=== PATIENT | female | born 1985 | race Caucasian/White ===

== ENCOUNTER 2017-05-20 22:47 | Emergency (ER) | payer SELFPAY ==
[~2017-05-20] VITALS: Ht 167.6 cm; Wt 104.3 kg
[2017-05-20 23:14] VITALS: BP 164/100
--- NOTE | 2017-05-20 23:40 | PHYS DOC ---
Past Medical History Past Medical History: Asthma, Diabetes-Type II, High Cholesterol, Hypertension Past Surgical History: Alcohol Use: Occasionally Drug Use: None Adult General Chief Complaint Chief Complaint: LOWER EXTREMITY SWELLING [facility] HPI Patient is a 31 year old [female presents to the emergency department stating that she is having left lower pain in her calf area just above the ankle for the last 3 or 4 days. She states that the area is red warm and very tender to touch. The area does appear to be circumferential. She does have swelling noted tendon to her ankle area. Patient is also complaining of pain and discomfort to her left eye. She states that she was seen at approximately a week ago and was told that she had a plugged that had flown into her eye. They deny any type of corneal abrasion. The eye still appears to be red. She states she was provided with medication [id number] for the eye irritation. Patient consented clear when her last tetanus immunization occurred. Review of Systems Review of Systems Constitutional: Denies fever or chills [] Eyes: Denies change in visual acuity, redness, or eye pain. Complaint of left eye being red and irritated HENT: Denies nasal congestion or sore throat. Respiratory: Denies cough or shortness of breath [] Cardiovascular: No additional information not addressed in HPI [] GI: Denies abdominal pain, nausea, vomiting, bloody stools or diarrhea [] : Denies dysuria or hematuria [] Musculoskeletal: Denies back pain or joint pain [] Integument: Denies rash or skin lesions. Pain and swelling with tenderness to the left lower calf area. Neurologic: Denies headache, focal weakness or sensory changes [] Endocrine: Denies polyuria or polydipsia [] Current Medications Current Medications Current Medications Medications (Trade) Dose Ordered Sig/Sanjeev Start Time Stop Time Status Last Admin Dose Admin Acetaminophen/ Hydrocodone Bitart (Lortab 5/325) 2 tab 1X ONCE 05/21/17 00:00 05/21/17 00:01 DC 05/21/17 00:10 2 TAB Diphtheria/ Tetanus/Acell Pertussis (Boostrix) 0.5 ml ONCE ONCE 05/21/17 00:30 05/21/17 00:31 DC 05/21/17 00:13 0.5 ML Allergies Allergies Allergies Coded Allergies Type Severity Reaction Last Updated Verified Penicillins Allergy Intermediate 05/20/17 Yes Physical Exam Physical Exam Constitutional: Well developed, well nourished, no acute distress, non-toxic appearance. [] HENT: Normocephalic, atraumatic, bilateral external ears normal, oropharynx moist, no oral exudates, nose normal. [] Eyes: PERRLA, EOMI, no discharge. Left eye appears to have conjunctiva that appear slightly red in color. Neck: Normal range of motion, no tenderness, supple, no stridor. [] Cardiovascular:Heart rate regular rhythm, no murmur [] Lungs & Thorax: Bilateral breath sounds clear to auscultation [] Skin: Warm, dry, no erythema, no rash. [] Back: No tenderness Extremities: Left lower leg tenderness, no cyanosis, no clubbing, ROM intact, no edema. Redness and swelling noted. Patient with positive Homans sign. Patient with no drainage noted. Peripheral pulses 2+ cap refill brisk less than 2 seconds. Neurologic: Alert and oriented X 3, normal motor function, normal sensory function, no focal deficits noted. [] Psychologic: Affect normal, judgement normal, mood normal. [] Current Patient Data Vital Signs Vital Signs Date Time Temp Pulse Resp B/P (MAP) Pulse Ox O2 Delivery O2 Flow Rate FiO2 05/21/17 00:10 18 99 Room Air 05/20/17 23:14 98.5 109 98.5 EKG EKG [] Radiology/Procedures Radiology/Procedures [][facility] [address] [place] [address] IMAGING REPORT Signed PATIENT: YI MEDINA ACCOUNT: [id number] : 1985 LOCATION: ER AGE: 31 SEX: F EXAM STATUS: REG ER ORD. PHYSICIAN: STEVEN MERIDA APRN REASON: red, warm swollen with + homans sign PROCEDURE: VENOUS LOWER EXTREMITY LEFT INDICATION: Leg edema COMPARISON: None. TECHNIQUE: Grayscale, color and doppler ultrasound images were obtained of the left lower extremity venous vasculature. LEFT: No thrombus identified in the common femoral vein, femoral vein, popliteal vein or visualized calf veins. Soft tissue edema seen. Mildly prominent lymph node left groin IMPRESSION: 1. No thrombus identified in deep venous system of the left lower extremity. Electronically signed by: Diamond Zaavla MD (05/21/2017 12:32 AM) [facility] DICTATED and SIGNED BY: DIAMOND ZAVALA MD DATE: 05/21/17 0029 CC: STEVEN MERIDA APRN; NO PCP; NON,STAFF ~ Course & Med Decision Making Course & Med Decision Making Pertinent Labs and Imaging studies reviewed. (See chart for details) Ultrasound was negative for any DVTs. Patient will be discharged home with a prescription for Bactrim 1 tablet twice a day for the next 10 days. Patient will also be part provided with a prescription for ofloxacin eyedrops. Patient will be encouraged to follow-up with a currency machine operator in regards to her eyes. Patient was encouraged to use Tylenol or ibuprofen for pain and discomfort. Patient will be discharged home in stable condition with recommendations to follow-up with her primary care physician in the next 3 days. Patient agrees with discharge instructions treatment regimens and follow-up recommendations. Signs and symptoms to return back to emergency department been provided. [] Dragon Disclaimer Dragon Disclaimer This electronic medical record was generated, in whole or in part, using a voice recognition dictation system. Departure Departure Impression: Primary Impression: Cellulitis Disposition: 01 HOME, SELF-CARE Condition: STABLE Referrals: NO PCP (PCP) Patient Instructions: Cellulitis, [id number] Additional Instructions: Activity as tolerated. Elevation as much as possible. Medication as prescribed. Tylenol or ibuprofen for pain and discomfort. Follow-up with your primary care physician in the next 3 days in regards to your left lower leg. Follow-up with ophthalmology in the next 24 hours. Return back to emergency department for signs and symptoms of become worse. Scripts Sulfamethoxazole/Trimethoprim (BACTRIM DS TABLET) 1 Each Tablet 1 TAB PO BID, #20 TAB Prov: STEVEN MERIDA APRN 05/21/17 STEVEN MERIDA APRN May 20, 2017 23:40
[2017-05-21] MEDS ORDERED: HYDROcodone/APAP 5/325MG 1 TAB TABLET PO ONE
[2017-05-21] MEDS ORDERED: DIPHTH,PERTUSS(ACELL),TET TOX 0.5 ML DISP.SYRIN. VAX IM ONE (00:30)
--- NOTE | 2017-05-21 00:35 | RAD ---
INDICATION: Leg edema COMPARISON: None. TECHNIQUE: Grayscale, color and doppler ultrasound images were obtained of the left lower extremity venous vasculature. LEFT: No thrombus identified in the common femoral vein, femoral vein, popliteal vein or visualized calf veins. Soft tissue edema seen. Mildly prominent lymph node left groin IMPRESSION: 1. No thrombus identified in deep venous system of the left lower extremity. Electronically signed by: Marco Antonio Crockett MD (05/21/2017 12:32 AM) [facility]
[2017-05-21] MEDS ORDERED: SULF1TAB24 PO (00:42)
== END 2017-05-21 00:47 | disposition home or self-care (01) ==
LOC: ER 22:47
DX: L03.116 Cellulitis of left lower limb (principal); H57.12 Ocular pain, left eye; E11.9 Type 2 diabetes mellitus without complications; E78.00 Pure hypercholesterolemia, unspecified; I10 Essential (primary) hypertension; J45.909 Unspecified asthma, uncomplicated; Z88.0 Allergy status to penicillin
CPT/HCPCS: 90471; 90715; 93971; 99284-25

== ENCOUNTER 2017-09-24 14:35 | Emergency (ER) | payer SELFPAY ==
[~2017-09-24] VITALS: Ht 165.1 cm; Wt 99.8 kg
[~2017-09-24 14:35] MED LIST: SULF1TAB24 PO
[2017-09-24] MEDS ORDERED: ONDANSETRON PF 4 MG/2 ML VIAL. IV ONE (15:15)
[2017-09-24] MEDS ORDERED: IV NORMAL SALINE 1000ML BAG 1,000 ML IV ONE (15:15)
[2017-09-24 15:30] LABS: BASO # 0.1 x10^3/uL (0.0-0.2); BASO % 1 % (0-3); EOS % 2 % (0-3); HEMATOCRIT 51.2 % (36.0-47.0); LYMPH # 3.6 x10^3/uL (1.0-4.8); LYMPH % 31 % (24-48); MEAN CORPUSCULAR HEMOGLOBIN 29 pg (25-35); MEAN CORPUSCULAR HGB CONC 33 g/dL (31-37); MEAN CORPUSCULAR VOLUME 87 fL (79-100); MONO % 5 % (0-9); NEUT % 61 % (31-73); PLATELET COUNT 251 x10^3/uL (140-400); RED BLOOD COUNT 5.89 x10^6/uL (3.50-5.40); RED CELL DISTRIBUTION WIDTH 14.8 % (11.5-14.5); WHITE BLOOD COUNT 11.5 x10^3/uL (4.0-11.0)
--- NOTE | 2017-09-24 15:36 | PHYS DOC ---
Past Medical History Past Medical History: Asthma, Diabetes-Type II, High Cholesterol, Hypertension Past Surgical History: Additional Information: 3-5 cigarettes daily Alcohol Use: Occasionally Drug Use: None Adult General Chief Complaint Chief Complaint: ABDOMINAL PAIN HPI HPI Patient is a 32 year old female who presents with general malaise nausea and vomiting over the past 1-2 weeks with uncontrolled diabetes noncompliant with her insulin; her claims that the insulin is making her sick and they've had 2 ER visits to in the past 1 week. Denies fever or dysuria frequency flank pain diarrhea cough chest pain. Review of Systems Review of Systems Constitutional: Denies fever or chills [] Eyes: Denies change in visual acuity, redness, or eye pain [] HENT: Denies nasal congestion or sore throat [] Respiratory: Denies cough or shortness of breath [] Cardiovascular: No additional information not addressed in HPI [] GI: Denies abdominal pain, nausea, vomiting, bloody stools or diarrhea [] : Denies dysuria or hematuria [] Musculoskeletal: Denies back pain or joint pain [] Integument: Denies rash or skin lesions [] Neurologic: Denies headache, focal weakness or sensory changes [] Endocrine: Denies polyuria or polydipsia [] All other systems were reviewed and found to be within normal limits, except as documented in this note. Current Medications Current Medications Current Medications Medications (Trade) Dose Ordered Sig/Sanjeev Start Time Stop Time Status Last Admin Dose Admin Ondansetron HCl (Zofran) 4 mg 1X ONCE 09/24/17 15:15 09/24/17 15:16 DC 09/24/17 15:22 4 MG Sodium Chloride 1,000 ml @ 1,000 mls/hr 1X ONCE 09/24/17 15:15 09/24/17 16:14 DC 09/24/17 15:22 1,000 MLS/HR Allergies Allergies Allergies Coded Allergies Type Severity Reaction Last Updated Verified Penicillins Allergy Intermediate 05/20/17 Yes Physical Exam Physical Exam Constitutional: Well developed, well nourished, no acute distress, non-toxic appearance. [] HENT: Normocephalic, atraumatic, bilateral external ears normal, oropharynx moist, no oral exudates, nose normal. [] Eyes: PERRLA, EOMI, conjunctiva normal, no discharge. [] Neck: Normal range of motion, no tenderness, supple, no stridor. [] Cardiovascular:Heart rate regular rhythm, no murmur [] Lungs & Thorax: Bilateral breath sounds clear to auscultation [] Abdomen: Bowel sounds normal, soft, no tenderness, no masses, no pulsatile masses. benign exam[] Skin: Warm, dry, no erythema, no rash. [] Back: No tenderness, no CVA tenderness. [] Extremities: No tenderness, no cyanosis, no clubbing, ROM intact, no edema. [] Neurologic: Alert and oriented X 3, normal motor function, normal sensory function, no focal deficits noted. [] Psychologic: Affect normal, judgement normal, mood normal. [] Current Patient Data Vital Signs Vital Signs Date Time Temp Pulse Resp B/P (MAP) Pulse Ox O2 Delivery O2 Flow Rate FiO2 09/24/17 17:40 76 18 144/77 (99) 96 Room Air 09/24/17 15:45 1.0 Lab Values Laboratory Tests Test 09/24/17 15:00 09/24/17 15:55 09/24/17 16:10 09/24/17 16:13 White Blood Count 11.5 x10^3/uL (4.0-11.0) H Red Blood Count 5.89 x10^6/uL (3.50-5.40) H Hemoglobin 17.0 g/dL (12.0-15.5) H Hematocrit 51.2 % (36.0-47.0) H Mean Corpuscular Volume 87 fL (79-100) Mean Corpuscular Hemoglobin 29 pg (25-35) Mean Corpuscular Hemoglobin Concent 33 g/dL (31-37) Red Cell Distribution Width 14.8 % (11.5-14.5) H Platelet Count 251 x10^3/uL (140-400) Neutrophils (%) (Auto) 61 % (31-73) Lymphocytes (%) (Auto) 31 % (24-48) Monocytes (%) (Auto) 5 % (0-9) Eosinophils (%) (Auto) 2 % (0-3) Basophils (%) (Auto) 1 % (0-3) Neutrophils # (Auto) 7.1 x10^3uL (1.8-7.7) Lymphocytes # (Auto) 3.6 x10^3/uL (1.0-4.8) Monocytes # (Auto) 0.6 x10^3/uL (0.0-1.1) Eosinophils # (Auto) 0.2 x10^3/uL (0.0-0.7) Basophils # (Auto) 0.1 x10^3/uL (0.0-0.2) Platelet Estimate Adequate (ADEQUATE) Sodium Level 137 mmol/L (136-145) Potassium Level 3.8 mmol/L (3.5-5.1) Chloride Level 99 mmol/L (98-107) Carbon Dioxide Level 32 mmol/L (21-32) Anion Gap 6 (6-14) Blood Urea Nitrogen 12 mg/dL (7-20) Creatinine 0.5 mg/dL (0.6-1.0) L Estimated GFR (Cockcroft-Gault) 143.9 BUN/Creatinine Ratio 24 (6-20) H Glucose Level 275 mg/dL (70-99) H Calcium Level 8.7 mg/dL (8.5-10.1) Total Bilirubin 0.4 mg/dL (0.2-1.0) Aspartate Amino Transferase (AST) 11 U/L (15-37) L Alanine Aminotransferase (ALT) 15 U/L (14-59) Alkaline Phosphatase 77 U/L (46-116) Total Protein 6.5 g/dL (6.4-8.2) Albumin 2.7 g/dL (3.4-5.0) L Albumin/Globulin Ratio 0.7 (1.0-1.7) L Lipase 111 U/L (73-393) Urine Color Yellow Urine Clarity Clear Urine pH 7.0 Urine Specific [place] 1.025 Urine Protein >=300 mg/dL (NEG-TRACE) Urine Glucose (UA) >=1000 mg/dL (NEG) Urine Ketones (Stick) Trace mg/dL (NEG) Urine Blood Small (NEG) Urine Nitrite Negative (NEG) Urine Bilirubin Negative (NEG) Urine Urobilinogen Dipstick 2.0 mg/dL (0.2 mg/dL) Urine Leukocyte Esterase Small (NEG) Urine RBC 1-2 /HPF (0-2) Urine WBC 5-10 /HPF (0-4) Urine Squamous Epithelial Cells Mod /LPF Urine Bacteria Mod /HPF (0-FEW) POC Urine HCG, Qualitative Hcg negative (Negative) Laboratory Tests 09/24/17 15:00 Laboratory Tests 09/24/17 15:55 EKG EKG [] Radiology/Procedures Radiology/Procedures [] Course & Med Decision Making Course & Med Decision Making Pertinent Labs and Imaging studies reviewed. (See chart for details) [Labs will be checked IV fluids and anti-emetics will be given. The patient had a benign abdominal exam; no right upper quadrant tenderness. The patient was improved and stable for outpatient follow-up] Labs showed slight elevation in glucose but no evidence of DKA; urine had bacteria but it was a rather poor specimen with quite a few epithelial cells. Dragon Disclaimer Dragon Disclaimer This electronic medical record was generated, in whole or in part, using a voice recognition dictation system. Departure Departure Impression: Primary Impression: Diabetes type 2, uncontrolled Additional Impressions: Hyperglycemia due to type 2 diabetes mellitus Vomiting Disposition: 01 HOME, SELF-CARE Condition: IMPROVED Referrals: NO PCP (PCP) Patient Instructions: Nausea and Vomiting, [id number] Additional Instructions: get follow up with a local PCP Scripts Ondansetron (ZOFRAN ODT) 4 Mg Tab.rapdis 4 MG PO TID Y for NAUSEA/VOMITING, #10 TAB Prov: CONCEPCION SCOTT MD 09/24/17 Problem Qualifiers CONCEPCION SCOTT MD Sep 24, 2017 15:36
[2017-09-24 16:20] LABS: CALCIUM 8.7 mg/dL (8.5-10.1); CREATININE 0.5 mg/dL (0.6-1.0); GFR 143.9; POTASSIUM 3.8 mmol/L (3.5-5.1)
[2017-09-24 16:26] LABS: ALBUMIN 2.7 g/dL (3.4-5.0); ALBUMIN/GLOBULIN RATIO 0.7 (1.0-1.7); TOTAL BILIRUBIN 0.4 mg/dL (0.2-1.0); TOTAL PROTEIN 6.5 g/dL (6.4-8.2)
[2017-09-24 16:38] LABS: BILIRUBIN,URINE NEGATIVE (NEG); GLUCOSE,URINE >=1000 mg/dL (NEG); NITRITE,URINE NEGATIVE (NEG); PROTEIN,URINE >=300 mg/dL (NEG-TRACE)
[2017-09-24 17:03] LABS: BACTERIA,URINE MOD /HPF (0-FEW); SQUAMOUS EPITHELIAL CELL,UR MOD /LPF
[2017-09-24] MEDS ORDERED: ONDA4TAB10 PO (17:25)
[2017-09-24 17:28] LABS: PLT ESTIMATE ADEQUATE (ADEQUATE)
[2017-09-24 17:40] VITALS: BP 144/77
== END 2017-09-24 17:40 | disposition home or self-care (01) ==
LOC: ER 14:35
DX: E11.65 Type 2 diabetes mellitus with hyperglycemia (principal); I10 Essential (primary) hypertension; Z91.14 Patient's other noncompliance with medication regimen; E78.00 Pure hypercholesterolemia, unspecified; J45.909 Unspecified asthma, uncomplicated; F17.210 Nicotine dependence, cigarettes, uncomplicated; Z88.0 Allergy status to penicillin
CPT/HCPCS: 36415; 80053; 81001; 81025; 83690; 85025; 96361; 96374; 99285; J2405; J7030; 96375

== ENCOUNTER 2017-10-09 21:44 | Emergency (ER) | payer SELFPAY ==
[2017-10-09] MEDS ORDERED: IV NORMAL SALINE 1000ML BAG 1,000 ML IV (22:30)
[2017-10-09 22:33] LABS: ADD MAN DIFF? NO
[2017-10-09 22:38] LABS: BASO # 0.1 x10^3/uL (0.0-0.2); BASO % 1 % (0-3); EOS % 2 % (0-3); HEMATOCRIT 48.2 % (36.0-47.0); HEMOGLOBIN 15.8 g/dL (12.0-15.5); LYMPH # 3.2 x10^3/uL (1.0-4.8); LYMPH % 31 % (24-48); MEAN CORPUSCULAR HEMOGLOBIN 29 pg (25-35); MEAN CORPUSCULAR HGB CONC 33 g/dL (31-37); MEAN CORPUSCULAR VOLUME 89 fL (79-100); MONO % 6 % (0-9); NEUT % 61 % (31-73); PLATELET COUNT 196 x10^3/uL (140-400); RED BLOOD COUNT 5.43 x10^6/uL (3.50-5.40); WHITE BLOOD COUNT 10.3 x10^3/uL (4.0-11.0)
[2017-10-09 22:45] LABS: ANION GAP 10 (6-14); BLOOD UREA NITROGEN 15 mg/dL (7-20); CALCIUM 8.9 mg/dL (8.5-10.1); CARBON DIOXIDE 30 mmol/L (21-32); CHLORIDE 102 mmol/L (98-107); CREATININE 0.8 mg/dL (0.6-1.0); GFR 83.7; GLUCOSE 357 mg/dL (70-99); POTASSIUM 4.3 mmol/L (3.5-5.1); SODIUM 142 mmol/L (136-145)
[2017-10-09 22:58] LABS: URINE HCG POC HCG NEGATIVE (Negative)
[2017-10-10] MEDS: DIPHTH,PERTUSS(ACELL),TET TOX 0.5 ML DISP.SYRIN. VAX IM (00:19)
== END 2017-10-10 00:59 | disposition home or self-care (01) ==
LOC: ER 10-10 00:59
DX: R56.9 Unspecified convulsions (principal); E11.65 Type 2 diabetes mellitus with hyperglycemia; F42.4 Excoriation (skin-picking) disorder; J45.909 Unspecified asthma, uncomplicated; E78.00 Pure hypercholesterolemia, unspecified; I10 Essential (primary) hypertension; Z88.0 Allergy status to penicillin
CPT/HCPCS: 36415; 70450; 80048; 81025; 85025; 90471; 90715; 99285-25

== ENCOUNTER 2017-12-19 23:39 | Emergency (ER) | payer OTHER ==
[2017-12-20] LABS: ADD MAN DIFF? NO
[2017-12-20 00:02] LABS: BASO # 0.1 x10^3/uL (0.0-0.2); BASO % 1 % (0-3); EOS # 0.3 x10^3/uL (0.0-0.7); EOS % 3 % (0-3); HEMATOCRIT 45.5 % (36.0-47.0); HEMOGLOBIN 15.2 g/dL (12.0-15.5); LYMPH % 37 % (24-48); MEAN CORPUSCULAR HEMOGLOBIN 30 pg (25-35); MEAN CORPUSCULAR HGB CONC 33 g/dL (31-37); MEAN CORPUSCULAR VOLUME 89 fL (79-100); MONO # 0.8 x10^3/uL (0.0-1.1); MONO % 7 % (0-9); NEUT # 5.8 x10^3uL (1.8-7.7); NEUT % 53 % (31-73); PLATELET COUNT 162 x10^3/uL (140-400); RED BLOOD COUNT 5.13 x10^6/uL (3.50-5.40); RED CELL DISTRIBUTION WIDTH 14.5 % (11.5-14.5)
[2017-12-20 00:12] LABS: ANION GAP 8 (6-14); BLOOD UREA NITROGEN 24 mg/dL (7-20); BUN/CREATININE RATIO 34 (6-20); CALCIUM 9.4 mg/dL (8.5-10.1); CARBON DIOXIDE 28 mmol/L (21-32); CHLORIDE 104 mmol/L (98-107); CREATININE 0.7 mg/dL (0.6-1.0); GFR 97.6; GLUCOSE 424 mg/dL (70-99); POTASSIUM 5.2 mmol/L (3.5-5.1); SODIUM 140 mmol/L (136-145)
[2017-12-20 00:18] LABS: ALBUMIN 2.6 g/dL (3.4-5.0); ALBUMIN/GLOBULIN RATIO 0.6 (1.0-1.7); ALK PHOS 86 U/L (46-116); ALT (SGPT) 14 U/L (14-59); AST (SGOT) 22 U/L (15-37); TOTAL BILIRUBIN 0.2 mg/dL (0.2-1.0); TOTAL PROTEIN 6.9 g/dL (6.4-8.2)
[2017-12-20 00:24] LABS: BARBITURATES NEG (NEG); BENZODIAZEPINES NEG (NEG); CANNABINOIDS NEG (NEG); COCAINE NEG (NEG); METHADONE NEG (NEG); OPIATES NEG (NEG); PHENCYCLIDINE NEG (NEG)
[2017-12-20 00:26] LABS: ACETONE NEG (NEG)
[2017-12-20 00:27] LABS: AMPHETAMINE/METHAMPHETAMINE NEG (NEG); ETHANOL, URINE NEG (NEG)
[2017-12-20] MEDS: diphenhydrAMINE 50 MG/ML VIAL IVP (00:30)
[2017-12-20] MEDS: fentaNYL PF VIAL 100 MCG/2 ML VIAL IV (00:30)
[2017-12-20] MEDS: IV NORMAL SALINE 1000ML BAG 1,000 ML IV ×3 (00:31→01:15)
[2017-12-20] MEDS: INSULIN REGULAR 100 UNIT/ML 10ML VIAL. SQ (00:55)
== END 2017-12-20 02:16 | disposition home or self-care (01) ==
LOC: ER 12-20 02:16
DX: R51 Headache (principal); E11.65 Type 2 diabetes mellitus with hyperglycemia; I10 Essential (primary) hypertension; F17.210 Nicotine dependence, cigarettes, uncomplicated; Z91.14 Patient's other noncompliance with medication regimen; G40.909 Epilepsy, unspecified, not intractable, without status epilepticus; Z88.0 Allergy status to penicillin
CPT/HCPCS: 36415; 80053; 80307; 82010; 85025; 96361; 96372; 96374; 96375; 99284-25; J1200; J1815; J3010; J7030

== ENCOUNTER 2018-01-24 01:17 | Emergency (ER) | payer OTHER ==
[2018-01-24] MEDS: CEPHALEXIN 250 MG CAPSULE. PO (02:25)
[2018-01-24] MEDS: HYDROcodone/APAP 5/325MG 1 TAB TABLET PO (02:25)
[2018-01-24] MEDS: NAPROXEN 500 MG TABLET PO (02:25)
== END 2018-01-24 02:34 | disposition home or self-care (01) ==
LOC: ER 01:17
DX: K08.89 Other specified disorders of teeth and supporting structures (principal); K02.9 Dental caries, unspecified; E11.9 Type 2 diabetes mellitus without complications; I10 Essential (primary) hypertension; Z88.0 Allergy status to penicillin; F17.210 Nicotine dependence, cigarettes, uncomplicated
CPT/HCPCS: 99284

== ENCOUNTER 2018-04-27 16:18 | Emergency (ER) | payer OTHER | END 2018-04-27 16:43 | disposition home or self-care (01) | LOC: ER 16:18 | DX: G56.01 Carpal tunnel syndrome, right upper limb (principal); E11.9 Type 2 diabetes mellitus without complications; I10 Essential (primary) hypertension; Z88.0 Allergy status to penicillin | CPT/HCPCS: 99281 ==